=== PATIENT | male | born 1985 | race African-American/Black ===

== ENCOUNTER → 2017-07-24 | Outpatient (CLI) | payer OTHER ==
[~2017-07-24] MED LIST: ACETAMINOPHEN325 M1 PO; ALAVERT10 MG PO; ALBUTEROL SULF8.5 GM IH; ALBUTEROL2.5 MG/3 M IH; ARIPIPRAZOLE10 MG PO; BENZONATATE100 MG PO; BENZTROPINE ME0.5 MG PO; CARBAMAZEPINE200 MG PO; CARNITOR PO; CARNITOR330 MG PO; CLARITIN,ALAVAR10 MG PO; CLARITIN10 MG PO; CLINDAMYCIN PHO30 ML TP; CLINDAMYCIN-BEN50 GM TP; COGENTIN0.5 MG PO; COLACE100 MG PO; CONSTULOSE10 GM/15 M PO; DAILY MULTIPLE1 EAC2 PO; DAILY VALUE1 EACH PO; DAILY VITE1 EAC1 PO; DEPAKOTE ER500 MG PO; DEPAKOTE250 MG PO; DEPAKOTE500 MG PO; DIAZEPAM10 MG PO; DIAZEPAM5 MG PO; DIVALPROEX SOD125 M1 PO; DIVALPROEX SOD250 MG PO; DIVALPROEX SOD500 MG PO; DOXYCYCLINE HYC50 MG PO; EAR WAX DROPS15 ML BOTH EARS; FLONASE16 G1 BOTH NARES; FOLIC ACID1 MG PO; GERI-LANTA LIQ355 ML PO; INDERAL LA60 MG PO; INDERAL20 MG PO; KEPPRA PO; KEPPRA1000 MG PO; KEPPRA750 MG PO; Keppra PO; LACTULOSE10 GM/151 PO; LAMICTAL (BLUE)25 MG PO; LAMICTAL200 MG PO; LEVOCARNITINE330 MG PO; LEXAPRO5 MG PO; LITHIUM CARBON150 MG PO; LITHIUM CARBON300 M1 PO; LITHIUM CARBON300 MG PO; LITHIUM CARBON600 MG PO; LORADAMED10 MG PO; LORATADINE10 M2 PO; LOXAPINE10 MG PO; LOXAPINE25 MG PO; LOXAPINE5 MG PO; MARTINIC1 EACH PO; MELATIN3 MG PO; MELATONIN 3 MG1 EAC1 PO; MELATONIN3 MG PO; MILK OF MAGN PO; MUCINEX600 MG PO; MULTI VITA-BE0.25 MG PO; MULTIVITAMIN1 EAC1 PO; MULTIVITAMIN1 EAC2 PO; NYSTATIN15 GM TP; OLANZAPINE10 MG PO; OLANZAPINE5 MG PO; OXCARBAZEPINE300 MG PO; PAROXETINE HCL10 MG PO; PHILLIPS'400 MG/5 M PO; PREDNISONE20 MG PO; PROAIR HFA8.5 GM IH; PYRIDOXINE HCL50 MG PO; RISPERDAL0.25 MG PO; RISPERDAL0.5 MG PO; RISPERDAL1 MG PO; RISPERDAL2 M1 PO; RISPERDAL2 MG PO; RISPERDAL3 MG PO; RISPERIDONE1 MG PO; RISPERIDONE2 MG PO; RISPERIDONE3 MG PO; ROBINUL1 MG PO; SELENIUM SULFI118 ML TP; SELENIUM SULFI120 ML TP; SELENIUM SULFI180 ML TP; SUPER MULTIVIT1 EACH PO; TEGRETOL PO; TEGRETOL XR200 MG PO; TEGRETOL XR400 MG PO; TEGRETOL-XR,CA200 MG PO; TEGRETOL-XR,CA400 MG PO; TEGRETOL200 MG PO; TEGretol PO; TESSALON PERLE100 MG PO; THERAGRAN1 TABLET PO; THIAMINE HCL100 MG PO; TRIPLE ANTIB28.35 GM TP; TYLENOL REGULA325 MG PO; TYLENOL325 M1 PO; VALIUM5 MG PO; VENTOLIN HFA18 GM IH; VIBRAMYCIN50 MG PO; VIMPAT200 MG PO; VITAMIN A TP; VITAMIN B-1100 MG PO; VITAMIN B-650 MG PO; ZOFRAN ODT4 MG PO; ZONISAMIDE100 MG PO; ZYPREXA20 MG PO; ZYPREXA5 MG PO; [UNRECOGNIZED DRUG - OTHER] TP; [UNRECOGNIZED DRUG - OTHER] TP
== END | disposition home or self-care (01) ==
DX: R13.11 Dysphagia, oral phase (principal); R09.89 Other specified symptoms and signs involving the circulatory and respiratory systems
CPT/HCPCS: 92611 GN